=== PATIENT | male | born 2000 | race Caucasian/White ===

== ENCOUNTER 2023-07-29 14:16 | Emergency (ER) | payer OTHER ==
[~2023-07-29] VITALS: Ht 188 cm; Wt 68.0 kg
[2023-07-29 14:28] VITALS: BP_SYST 128; PULSE 72; RESP 18; TEMP 98.5; O2SAT 100
[2023-07-29] MEDS ORDERED: BACITRACIN 1 GM OINT TP ONE (14:30)
[2023-07-29 15:02] VITALS: BP_SYST 128; PULSE 72; RESP 18; TEMP 98.5; O2SAT 100
== END 2023-07-29 14:47 | disposition home or self-care (01) ==
LOC: SED 14:16
DX: Z48.00 Encounter for change or removal of nonsurgical wound dressing (principal); Z79.899 Other long term (current) drug therapy
CPT/HCPCS: 99282

== ENCOUNTER 2023-07-31 14:22 | Emergency (ER) | payer OTHER ==
[~2023-07-31] VITALS: Ht 160 cm; Wt 68.0 kg
[2023-07-31 14:35] VITALS: BP_SYST 125; PULSE 85; RESP 18; TEMP 98.3; O2SAT 98
[2023-07-31 14:59] VITALS: BP_SYST 125; PULSE 85; RESP 18; TEMP 98.3; O2SAT 98
== END 2023-07-31 14:57 | disposition home or self-care (01) ==
LOC: SED 14:22
DX: Z48.00 Encounter for change or removal of nonsurgical wound dressing (principal); Z79.899 Other long term (current) drug therapy
CPT/HCPCS: 99282